=== PATIENT | female | born 1945 | race Two or more races ===

== ENCOUNTER → 2022-11-09 | Outpatient (CLI) | payer OTHER ==
[2022-11-09 13:15] LABS: Cholesterol 146 mg/dL (< 200); HDL Cholesterol 58 mg/dL (40-59); LDL Cholesterol 72 mg/dL (< 100); Triglycerides 103 mg/dL (< 150)
== END | disposition home or self-care (01) ==
LOC: LAB 09:37
PROVIDERS: ATTEND Internal Medicine
DX: E78.5 Hyperlipidemia, unspecified (principal); E03.9 Hypothyroidism, unspecified; E11.42 Type 2 diabetes mellitus with diabetic polyneuropathy
CPT/HCPCS: 36415; 80061; 83036; 84443

== ENCOUNTER → 2022-11-24 | Outpatient (CLI) | payer OTHER | END | disposition home or self-care (01) | LOC: LAB 13:04 | PROVIDERS: ATTEND Internal Medicine | DX: E03.9 Hypothyroidism, unspecified (principal) | CPT/HCPCS: 36415; 84443 ==

== ENCOUNTER → 2023-03-02 | Outpatient (CLI) | payer OTHER | END | disposition home or self-care (01) | LOC: LAB 14:49 | PROVIDERS: ATTEND Internal Medicine | DX: E11.9 Type 2 diabetes mellitus without complications (principal); E03.9 Hypothyroidism, unspecified | CPT/HCPCS: 36415; 83036; 84443 ==

== ENCOUNTER 2023-05-05 18:31 | Emergency (ER) | payer OTHER ==
[~2023-05-05] VITALS: Ht 165.1 cm; Wt 78.2 kg
[2023-05-05 19:20] VITALS: O2SAT 97
[2023-05-05 20:28] LABS: Rapid Influenza A Negative (Negative); Rapid Influenza B Negative (Negative)
[2023-05-05 20:30] LABS: COVID19 ANTIGEN SOFIA FIA NEGATIVE (NEGATIVE)
[2023-05-05 22:29] LABS: Urine Bacteria FEW /hpf (None Seen); Urine Blood Negative /uL (Negative); Urine Clarity HAZY (Clear); Urine Color Colorless (Yellow); Urine Protein, UAD TRACE (Negative); Urine Specific Gravity 1.015 (1.001-1.035); Urine Urobilinogen Normal (Negative); Urine WBC 1 /hpf (0 - 5); Urine pH 5.5 (5.0-8.0)
[2023-05-05 23:03] LABS: Basophils # (auto) 0 10 ^3/uL (0-0.2); Basophils % (auto) 0.8 % (0.0-2.0); Eosinophils # (auto) 0.2 10 ^3/uL (0-0.8); Hematocrit 32.3 % (36.0-46.0); Hemoglobin 10.5 g/dL (12.2-16.2); Lymphocytes # (auto) 1.9 10 ^3/uL (0.4-5.4); Lymphocytes % (auto) 29.7 % (10.0-50.0); Mean Corpuscular Hemoglobin 27.6 pg (28.0-32.0); Mean Corpuscular Hgb Conc. 32.6 g/dL (32.0-36.0); Mean Corpuscular Volume 84.6 fL (80.0-100.0); Monocytes # (auto) 0.5 10 ^3/uL (0-1.3); Monocytes % (auto) 7.6 % (0.0-12.0); Neutrophils # (auto) 3.8 10 ^3/uL (1.6-8.6); Neutrophils % (auto) 58.9 % (37.0-80.0); Red Blood Cells 3.82 10^6/uL (4.0-5.20); Red Cell Distribution Width 15.1 % (11.8-14.3); White Blood Cell 6.4 10^3/uL (4.4-10.8)
[2023-05-05 23:22] LABS: INR 1.07 (0.9-1.15); Prothrombin Time 11.2 sec (9.3-11.8)
[2023-05-05 23:31] LABS: Alanine Aminotransferase 12 U/L (7-40); Albumin 4.3 g/dL (3.2-4.8); Alkaline Phosphatase 50 U/L (46-116); Anion Gap 8 (5-15); Aspartate Aminotransferase 14 U/L (13-40); BUN/Creatinine Ratio 22.4 (10.0-20.0); Bilirubin, Total 0.3 mg/dL (0.2-1.0); Blood Urea Nitrogen 17 mg/dL (9-23); Calcium 9.1 mg/dL (8.7-10.4); Carbon Dioxide 27 mmol/L (20-30); Chloride 98 mmol/L (98-107); Glucose 108 mg/dL (74-106); Potassium 3.9 mmol/L (3.5-5.1); Sodium 133 mmol/L (136-145); Total Protein 6.7 g/dL (5.7-8.2)
[2023-05-05] MEDS ORDERED: IBUPROFEN 800 MG TAB PO ONE (23:45)
[2023-05-06] MEDS ORDERED: cloNIDine HCL 0.1 MG TAB PO ONE (00:15)
[2023-05-06 01:37] VITALS: BP 158/64; PULSE 56; RESP 16; TEMP 97.7
== END 2023-05-06 02:04 | disposition home or self-care (01) ==
LOC: ER 18:31
DX: B34.9 Viral infection, unspecified (principal); I10 Essential (primary) hypertension; E11.9 Type 2 diabetes mellitus without complications; Z20.822 Contact with and (suspected) exposure to COVID-19; Z98.890 Other specified postprocedural states
CPT/HCPCS: 36415; 71045; 80053; 81001; 85025; 85610; 87426; 87804; 93005

== ENCOUNTER 2023-06-18 19:38 | Inpatient (IN) | payer OTHER ==
[~2023-06-18] VITALS: Ht 165.1 cm; Wt 79.0 kg
[2023-06-18] MEDS ORDERED: cloNIDine HCL 0.1 MG TAB PO ONE (20:00)
[2023-06-18 21:09] LABS: COVID19 ANTIGEN SOFIA FIA NEGATIVE (NEGATIVE); Rapid Influenza A Negative (Negative); Rapid Influenza B Negative (Negative)
[2023-06-18 21:43] LABS: Basophils # (auto) 0 10 ^3/uL (0-0.2); Eosinophils # (auto) 0.1 10 ^3/uL (0-0.8); Hemoglobin 10.5 g/dL (12.2-16.2); White Blood Cell 7.2 10^3/uL (4.4-10.8)
[2023-06-18 21:44] LABS: Basophils % (auto) 0.4 % (0.0-2.0); Eosinophils % (auto) 1.4 % (0.0-7.0); Hematocrit 32.6 % (36.0-46.0); Lymphocytes # (auto) 1.9 10 ^3/uL (0.4-5.4); Lymphocytes % (auto) 26.2 % (10.0-50.0); Mean Corpuscular Hemoglobin 26.5 pg (28.0-32.0); Mean Corpuscular Hgb Conc. 32.1 g/dL (32.0-36.0); Mean Corpuscular Volume 82.7 fL (80.0-100.0); Monocytes # (auto) 0.4 10 ^3/uL (0-1.3); Monocytes % (auto) 5.7 % (0.0-12.0); Neutrophils # (auto) 4.8 10 ^3/uL (1.6-8.6); Neutrophils % (auto) 66.3 % (37.0-80.0); Nucleated Red Blood Cells % 0.1 %; Red Blood Cells 3.94 10^6/uL (4.0-5.20); Red Cell Distribution Width 14.5 % (11.8-14.3)
[2023-06-18 22:00] LABS: Albumin 4.4 g/dL (3.2-4.8); Alkaline Phosphatase 41 U/L (46-116); Anion Gap 6 (5-15); Aspartate Aminotransferase 11 U/L (13-40); BUN/Creatinine Ratio 16.9 (10.0-20.0); Blood Urea Nitrogen 14 mg/dL (9-23); Calcium 8.9 mg/dL (8.7-10.4); Carbon Dioxide 28 mmol/L (20-30); Chloride 94 mmol/L (98-107); Glucose 144 mg/dL (74-106); Potassium 4.2 mmol/L (3.5-5.1); Sodium 128 mmol/L (136-145)
[2023-06-18 22:01] LABS: Bilirubin, Total 0.4 mg/dL (0.2-1.0); Total Protein 6.6 g/dL (5.7-8.2)
[2023-06-18 22:30] LABS: Alanine Aminotransferase < 9 U/L (7-40)
[2023-06-18] MEDS ORDERED: SODIUM CHLORIDE 0.9% 1,000 ML IV ONE (23:30)
[2023-06-19] MEDS ORDERED: ACETAMINOPHEN 325 MG TAB PO ONE ×2 (01:30→05:30)
[2023-06-19] MEDS ORDERED: MORPHINE SULFATE INJ 2 MG/ml SYRG IV PRN (05:45)
[2023-06-19] MEDS ORDERED: ONDANSETRON HCL 4 MG/2 ML VIAL IV PRN (05:45)
[2023-06-19] MEDS ORDERED: NITROGLYCERIN 0.4 MG SL TAB SL PRN (05:45)
[2023-06-19] MEDS ORDERED: DEXTROSE (50%) 50ML SYRG IV PRN (05:45)
[2023-06-19] MEDS: ACCU-CHEK COMFORT CURVE STRIP VI SCH ×4 (07:00→22:24)
[2023-06-19 07:10] LABS: Chloride 94 mmol/L (98-107); Potassium 3.4 mmol/L (3.5-5.1); Sodium 128 mmol/L (136-145)
[2023-06-19 07:11] LABS: Anion Gap 6 (5-15); Carbon Dioxide 28 mmol/L (20-30)
[2023-06-19 07:12] LABS: Calcium 8.8 mg/dL (8.7-10.4)
[2023-06-19 07:16] LABS: Blood Urea Nitrogen 13 mg/dL (9-23); Glucose 153 mg/dL (74-106)
[2023-06-19] MEDS: InsuLIN REG 1unit/0.01ml Soln (100units/ml) SC SCH ×4 (07:41→22:41)
[2023-06-19 07:47] LABS: Urine Bacteria NONE SEEN /hpf (None Seen); Urine Blood Negative /uL (Negative); Urine Clarity Clear (Clear); Urine Color Colorless (Yellow); Urine Protein, UAD Negative (Negative); Urine Specific Gravity 1.008 (1.001-1.035); Urine Urobilinogen Normal (Negative); Urine WBC <1 /hpf (0 - 5)
[2023-06-19 07:51] LABS: Creatinine, Urine 18.55 mg/dL (30.0-125.0)
[2023-06-19] MEDS: LEVOTHYROXINE SODIUM 25 MCG TAB PO SCH (07:53)
[2023-06-19] MEDS: METOPROLOL SUCCINATE XL 50 MG TAB PO SCH (10:00)
[2023-06-19] MEDS: ACETAMINOPHEN 325 MG TAB PO PRN ×3 (10:34→23:39)
[2023-06-19] MEDS: ENOXAPARIN SOD 40 MG/0.4 ML SYRINGE SC SCH (10:35)
[2023-06-19] MEDS: LISINOPRIL 20 MG TAB PO SCH ×2 (12:09→22:19)
[2023-06-19] MEDS: cloNIDine HCL 0.1 MG TAB PO PRN (22:20)
[2023-06-20] VITALS (7 sets, daily range): BP systolic 157–193; BP diastolic 55–79; PULSE 56–68; RESP 16–20; TEMP 97.6–98.5; O2SAT 96–100
[2023-06-20] MEDS: LEVOTHYROXINE SODIUM 25 MCG TAB PO SCH (06:24)
[2023-06-20] MEDS: ACETAMINOPHEN 325 MG TAB PO PRN ×4 (06:27→22:00)
[2023-06-20] MEDS: cloNIDine HCL 0.1 MG TAB PO PRN ×2 (06:28→22:00)
[2023-06-20 06:57] LABS: Basophils # (auto) 0.1 10 ^3/uL (0-0.2); Basophils % (auto) 0.5 % (0.0-2.0); Eosinophils # (auto) 0.1 10 ^3/uL (0-0.8); Hematocrit 37.3 % (36.0-46.0); Hemoglobin 12.3 g/dL (12.2-16.2); Lymphocytes # (auto) 2.6 10 ^3/uL (0.4-5.4); Lymphocytes % (auto) 24.5 % (10.0-50.0); Mean Corpuscular Hemoglobin 27.4 pg (28.0-32.0); Mean Corpuscular Volume 83.2 fL (80.0-100.0); Monocytes # (auto) 0.8 10 ^3/uL (0-1.3); Monocytes % (auto) 7.1 % (0.0-12.0); Neutrophils # (auto) 7.1 10 ^3/uL (1.6-8.6); Neutrophils % (auto) 66.9 % (37.0-80.0); Red Blood Cells 4.48 10^6/uL (4.0-5.20); Red Cell Distribution Width 14.6 % (11.8-14.3); White Blood Cell 10.6 10^3/uL (4.4-10.8)
[2023-06-20] MEDS: InsuLIN REG 1unit/0.01ml Soln (100units/ml) SC SCH ×4 (07:00→22:05)
[2023-06-20 07:04] LABS: Alanine Aminotransferase 11 U/L (7-40); Albumin 5.1 g/dL (3.2-4.8); Alkaline Phosphatase 44 U/L (46-116); Anion Gap 8 (5-15); Aspartate Aminotransferase 16 U/L (13-40); BUN/Creatinine Ratio 13.8 (10.0-20.0); Blood Urea Nitrogen 11 mg/dL (9-23); Calcium 9.8 mg/dL (8.7-10.4); Carbon Dioxide 28 mmol/L (20-30); Chloride 88 mmol/L (98-107); Glucose 145 mg/dL (74-106); Potassium 3.6 mmol/L (3.5-5.1); Sodium 124 mmol/L (136-145)
[2023-06-20 07:05] LABS: Bilirubin, Total 0.6 mg/dL (0.2-1.0); Total Protein 7.9 g/dL (5.7-8.2)
[2023-06-20] MEDS: ACCU-CHEK COMFORT CURVE STRIP VI SCH ×5 (07:30→22:04)
[2023-06-20] MEDS: METOPROLOL SUCCINATE XL 50 MG TAB PO SCH (09:52)
[2023-06-20] MEDS: ENOXAPARIN SOD 40 MG/0.4 ML SYRINGE SC SCH (09:52)
[2023-06-20] MEDS: LISINOPRIL 20 MG TAB PO SCH ×2 (09:53→21:59)
[2023-06-20] MEDS ORDERED: LEVOTHYROXINE SODIUM 100 MCG/5 ML INJ IV ONE (16:00)
[2023-06-20] MEDS: SODIUM CHLORIDE 0.9% 1,000 ML IV SCH (16:45)
[2023-06-20] MEDS ORDERED: NIFEdipine ER 30 MG TAB PO ONE (17:45)
[2023-06-21] VITALS (7 sets, daily range): BP systolic 130–171; BP diastolic 68–94; PULSE 57–72; RESP 16–22; TEMP 97.4–98.6; O2SAT 92–100
[2023-06-21] MEDS: TEMAZEPAM 15 MG CAP PO PRN ×2 (00:27→22:31)
[2023-06-21] MEDS: SODIUM CHLORIDE 0.9% 1,000 ML IV SCH (00:45)
[2023-06-21] MEDS: ACETAMINOPHEN 325 MG TAB PO PRN ×3 (05:52→22:31)
[2023-06-21 05:54] LABS: Chloride 88 mmol/L (98-107); Potassium 3.5 mmol/L (3.5-5.1); Sodium 123 mmol/L (136-145)
[2023-06-21 05:55] LABS: Anion Gap 9 (5-15); Carbon Dioxide 26 mmol/L (20-30)
[2023-06-21 06:00] LABS: BUN/Creatinine Ratio 13.2 (10.0-20.0); Blood Urea Nitrogen 10 mg/dL (9-23); Glucose 144 mg/dL (74-106)
[2023-06-21] MEDS: InsuLIN REG 1unit/0.01ml Soln (100units/ml) SC SCH ×4 (06:04→22:36)
[2023-06-21] MEDS: cloNIDine HCL 0.1 MG TAB PO PRN (06:15)
[2023-06-21] MEDS: ACCU-CHEK COMFORT CURVE STRIP VI SCH ×4 (07:24→22:30)
[2023-06-21] MEDS: LEVOTHYROXINE SODIUM 100 MCG/5 ML INJ IV SCH (09:57)
[2023-06-21] MEDS: NIFEdipine ER 30 MG TAB PO SCH (09:58)
[2023-06-21] MEDS: METOPROLOL SUCCINATE XL 50 MG TAB PO SCH (09:58)
[2023-06-21] MEDS: LISINOPRIL 20 MG TAB PO SCH ×2 (09:58→22:32)
[2023-06-21] MEDS: ENOXAPARIN SOD 40 MG/0.4 ML SYRINGE SC SCH (09:59)
[2023-06-21] MEDS ORDERED: FUROSEMIDE 40 MG/4 ML VIAL IV ONE (12:15)
[2023-06-21 14:18] LABS: Chloride 88 mmol/L (98-107); Potassium 3.5 mmol/L (3.5-5.1); Sodium 122 mmol/L (136-145)
[2023-06-21 14:19] LABS: Anion Gap 9 (5-15); Calcium 9.3 mg/dL (8.5-10.1); Carbon Dioxide 25 mmol/L (20-30)
[2023-06-21 14:24] LABS: BUN/Creatinine Ratio 16.2 (10.0-20.0); Blood Urea Nitrogen 11 mg/dL (9-23); Glucose 146 mg/dL (74-106)
[2023-06-21] MEDS ORDERED: GABAPENTIN 100 MG CAP PO ONE (22:15)
[2023-06-22] VITALS (7 sets, daily range): BP systolic 125–154; BP diastolic 62–89; PULSE 66–72; RESP 18; TEMP 97.4–98.9; O2SAT 95–99
[2023-06-22] MEDS: ACETAMINOPHEN 325 MG TAB PO PRN ×3 (05:43→18:33)
[2023-06-22] MEDS: InsuLIN REG 1unit/0.01ml Soln (100units/ml) SC SCH ×4 (06:30→22:52)
[2023-06-22] MEDS: ACCU-CHEK COMFORT CURVE STRIP VI SCH ×4 (06:31→22:52)
[2023-06-22] MEDS: LEVOTHYROXINE SODIUM 100 MCG/5 ML INJ IV SCH (09:51)
[2023-06-22] MEDS: DOCUSATE SOD 100 MG CAP PO SCH ×2 (09:52→22:46)
[2023-06-22] MEDS: FUROSEMIDE 40 MG/4 ML VIAL IV SCH (09:52)
[2023-06-22] MEDS: NIFEdipine ER 30 MG TAB PO SCH (09:52)
[2023-06-22] MEDS: LISINOPRIL 20 MG TAB PO SCH ×2 (09:54→22:46)
[2023-06-22] MEDS: METOPROLOL SUCCINATE XL 50 MG TAB PO SCH (09:54)
[2023-06-22] MEDS: ENOXAPARIN SOD 40 MG/0.4 ML SYRINGE SC SCH (09:57)
[2023-06-22 13:07] LABS: Anion Gap 8 (5-15); Carbon Dioxide 26 mmol/L (20-30); Chloride 86 mmol/L (98-107); Potassium 3.3 mmol/L (3.5-5.1); Sodium 120 mmol/L (136-145)
[2023-06-22 13:08] LABS: Calcium 9.4 mg/dL (8.5-10.1)
[2023-06-22 13:13] LABS: BUN/Creatinine Ratio 21.7 (10.0-20.0); Blood Urea Nitrogen 15 mg/dL (9-23); Glucose 127 mg/dL (74-106)
[2023-06-22] MEDS ORDERED: POTASSIUM CHL 20 Meq TABLET PO ONE (13:45)
[2023-06-22] MEDS: UREA 15gm PO Powder PKG PO SCH ×2 (14:02→23:00)
[2023-06-22] MEDS ORDERED: GABAPENTIN 100 MG CAP PO ONE (22:15)
[2023-06-22] MEDS: TEMAZEPAM 15 MG CAP PO PRN (22:45)
[2023-06-23] VITALS (7 sets, daily range): BP systolic 112–159; BP diastolic 63–81; PULSE 63–84; RESP 16–19; TEMP 97.3–98.9; O2SAT 96–100
[2023-06-23] MEDS: ACETAMINOPHEN 325 MG TAB PO PRN ×3 (00:53→20:12)
[2023-06-23 05:51] LABS: Anion Gap 10 (5-15); Calcium 10.4 mg/dL (8.5-10.1); Carbon Dioxide 27 mmol/L (20-30); Chloride 88 mmol/L (98-107); Potassium 3.8 mmol/L (3.5-5.1)
[2023-06-23 05:58] LABS: Glucose 148 mg/dL (74-106)
[2023-06-23 06:19] LABS: Blood Urea Nitrogen 36 mg/dL (9-23); Sodium 125 mmol/L (136-145)
[2023-06-23] MEDS: ACCU-CHEK COMFORT CURVE STRIP VI SCH ×4 (06:36→21:49)
[2023-06-23] MEDS: InsuLIN REG 1unit/0.01ml Soln (100units/ml) SC SCH ×4 (06:41→21:55)
[2023-06-23] MEDS: DOCUSATE SOD 100 MG CAP PO SCH ×2 (09:54→21:48)
[2023-06-23] MEDS: NIFEdipine ER 30 MG TAB PO SCH (09:55)
[2023-06-23] MEDS: FUROSEMIDE 40 MG/4 ML VIAL IV SCH (09:56)
[2023-06-23] MEDS: LEVOTHYROXINE SODIUM 100 MCG/5 ML INJ IV SCH (09:56)
[2023-06-23] MEDS: LISINOPRIL 20 MG TAB PO SCH ×2 (09:58→21:49)
[2023-06-23] MEDS: METOPROLOL SUCCINATE XL 50 MG TAB PO SCH (09:59)
[2023-06-23] MEDS: ENOXAPARIN SOD 40 MG/0.4 ML SYRINGE SC SCH (09:59)
[2023-06-23] MEDS: UREA 15gm PO Powder PKG PO SCH ×2 (10:08→21:49)
[2023-06-23 13:40] LABS: Magnesium 1.9 mg/dL (1.6-2.6)
[2023-06-23] MEDS ORDERED: UREA15PO PO (17:19)
[2023-06-23] MEDS ORDERED: LEV50T PO (17:19)
[2023-06-23] MEDS: TEMAZEPAM 15 MG CAP PO PRN (22:01)
[2023-06-24] MEDS: ACETAMINOPHEN 325 MG TAB PO PRN ×2 (01:12→08:09)
[2023-06-24 05:00] VITALS: BP 102/55; PULSE 64; RESP 16; TEMP 97.6; O2SAT 100
[2023-06-24] MEDS: ACCU-CHEK COMFORT CURVE STRIP VI SCH ×2 (06:22→11:30)
[2023-06-24] MEDS: InsuLIN REG 1unit/0.01ml Soln (100units/ml) SC SCH ×2 (06:38→11:32)
[2023-06-24 07:51] LABS: Chloride 93 mmol/L (98-107); Potassium 3.9 mmol/L (3.5-5.1); Sodium 128 mmol/L (136-145)
[2023-06-24 07:52] LABS: Anion Gap 7 (5-15); Calcium 9.9 mg/dL (8.7-10.4); Carbon Dioxide 28 mmol/L (20-30)
[2023-06-24 07:57] LABS: BUN/Creatinine Ratio 59.2 (10.0-20.0); Glucose 151 mg/dL (74-106)
[2023-06-24 07:58] LABS: Magnesium 2.2 mg/dL (1.6-2.6)
[2023-06-24 07:59] LABS: Phosphorus 5.5 mg/dL (2.4-5.1)
[2023-06-24 08:00] VITALS: BP 110/83; PULSE 100; PULSE 76; RESP 18; TEMP 98.1; O2SAT 96
[2023-06-24 08:00] LABS: Blood Urea Nitrogen 61 mg/dL (9-23)
[2023-06-24] MEDS: FUROSEMIDE 40 MG/4 ML VIAL IV SCH (09:38)
[2023-06-24] MEDS: LEVOTHYROXINE SODIUM 100 MCG/5 ML INJ IV SCH (09:45)
[2023-06-24] MEDS: DOCUSATE SOD 100 MG CAP PO SCH (09:46)
[2023-06-24] MEDS: NIFEdipine ER 30 MG TAB PO SCH (09:46)
[2023-06-24] MEDS: METOPROLOL SUCCINATE XL 50 MG TAB PO SCH (09:46)
[2023-06-24] MEDS: LISINOPRIL 20 MG TAB PO SCH (09:47)
[2023-06-24] MEDS: UREA 15gm PO Powder PKG PO SCH (09:47)
[2023-06-24] MEDS: ENOXAPARIN SOD 40 MG/0.4 ML SYRINGE SC SCH (09:50)
[2023-06-24 11:22] VITALS: BP 110/83; PULSE 100; TEMP 36.7
== END 2023-06-24 11:35 | disposition home or self-care (01) | DRG 645 ==
LOC: ER 19:38 → TELE 06-19 05:48 → TELE-EAST 06-20 08:53
PROVIDERS: ADMIT Nurse Practitioner; ATTEND Internal Medicine
DX: E22.2 Syndrome of inappropriate secretion of antidiuretic hormone (principal); I16.0 Hypertensive urgency; I10 Essential (primary) hypertension; E86.0 Dehydration; E11.9 Type 2 diabetes mellitus without complications; K52.9 Noninfective gastroenteritis and colitis, unspecified; Z20.822 Contact with and (suspected) exposure to COVID-19; E03.9 Hypothyroidism, unspecified; Z80.0 Family history of malignant neoplasm of digestive organs; Z82.49 Family history of ischemic heart disease and other diseases of the circulatory system; Z82.62 Family history of osteoporosis; Z83.3 Family history of diabetes mellitus
CPT/HCPCS: 36415; 80048; 80053; 81001; 82140; 82306; 82570; 82962; 83036; 83735; 83880; 83930; 83935; 84100; 84295; 84300; 84439; 84443; 84484; 85025; 87426; 87804; 93005; 97163; G0378; J1815; J3490

== ENCOUNTER → 2023-07-04 | Outpatient (CLI) | payer OTHER ==
[~2023-07-04] MED LIST: LEV50T PO; UREA15PO PO
[2023-07-04 15:12] LABS: Chloride 102 mmol/L (98-107); Potassium 4.7 mmol/L (3.5-5.1); Sodium 138 mmol/L (136-145)
[2023-07-04 15:13] LABS: Anion Gap 9 (5-15); Carbon Dioxide 27 mmol/L (20-30)
[2023-07-04 15:14] LABS: Calcium 9.5 mg/dL (8.5-10.1)
[2023-07-04 15:18] LABS: Blood Urea Nitrogen 19 mg/dL (9-23); Glucose 129 mg/dL (74-106)
== END | disposition home or self-care (01) ==
LOC: LAB 14:28
PROVIDERS: ATTEND Internal Medicine
DX: E22.2 Syndrome of inappropriate secretion of antidiuretic hormone (principal)
CPT/HCPCS: 36415; 80048; 83930; 83935

== ENCOUNTER → 2023-07-06 | Outpatient (CLI) | payer OTHER | END | disposition home or self-care (01) | LOC: LAB 15:44 | PROVIDERS: ATTEND Internal Medicine | DX: N39.0 Urinary tract infection, site not specified (principal) | CPT/HCPCS: 87086 ==

== ENCOUNTER → 2023-08-31 | Outpatient (CLI) | payer OTHER | END | disposition home or self-care (01) | LOC: LAB 14:43 | PROVIDERS: ATTEND Internal Medicine | DX: E11.9 Type 2 diabetes mellitus without complications (principal) | CPT/HCPCS: 36415; 83036; 84443 ==

== ENCOUNTER → 2023-10-25 | Outpatient (CLI) | payer OTHER | END | disposition home or self-care (01) | LOC: XYW 13:15 | PROVIDERS: ATTEND Student in an Organized Health Care Education/Training Program | DX: Z01.810 Encounter for preprocedural cardiovascular examination (principal); I08.0 Rheumatic disorders of both mitral and aortic valves; I10 Essential (primary) hypertension | CPT/HCPCS: 93306 ==

== ENCOUNTER → 2024-04-27 | Outpatient (CLI) | payer OTHER ==
[~2024-04-27] MED LIST changes: -LEV50T PO; +LEVO-848 PO
[2024-04-27 12:01] LABS: Chloride 103 mmol/L (98-107); Potassium 4.6 mmol/L (3.5-5.1); Sodium 138 mmol/L (136-145)
[2024-04-27 12:02] LABS: Calcium 9.6 mg/dL (8.7-10.4)
[2024-04-27 12:04] LABS: Anion Gap 7 (5-15); Carbon Dioxide 28 mmol/L (20-31)
[2024-04-27 12:07] LABS: BUN/Creatinine Ratio 25.3 (10.0-20.0); Blood Urea Nitrogen 21 mg/dL (9-23); Glucose 124 mg/dL (74-106); Triglycerides 66 mg/dL (< 150)
[2024-04-27 12:08] LABS: LDL Cholesterol 74 mg/dL (< 100)
[2024-04-27 12:09] LABS: Cholesterol 142 mg/dL (< 200); HDL Cholesterol 60 mg/dL (40-59)
== END | disposition home or self-care (01) ==
LOC: LAB 11:11
PROVIDERS: ATTEND Internal Medicine
DX: E11.69 Type 2 diabetes mellitus with other specified complication (principal); E78.5 Hyperlipidemia, unspecified; E03.9 Hypothyroidism, unspecified
CPT/HCPCS: 36415; 80048; 80061; 83036; 84443

== ENCOUNTER → 2024-05-30 | Outpatient (CLI) | payer OTHER ==
[2024-05-30 15:39] LABS: Creatinine, Urine 41.85 mg/dL (30.0-125.0)
== END | disposition home or self-care (01) ==
LOC: LAB 15:00
PROVIDERS: ATTEND Pathology Anatomic Pathology & Clinical Pathology
DX: E11.9 Type 2 diabetes mellitus without complications (principal)
CPT/HCPCS: 36415; 82043; 82570

== ENCOUNTER → 2024-10-17 | Outpatient (CLI) | payer OTHER ==
[2024-10-17 14:15] LABS: Chloride 99 mmol/L (98-107)
[2024-10-17 14:16] LABS: Anion Gap 14 (5-15); Carbon Dioxide 23 mmol/L (20-31)
[2024-10-17 14:18] LABS: Sodium 136 mmol/L (136-145)
[2024-10-17 14:21] LABS: BUN/Creatinine Ratio 19.8 (10.0-20.0); Blood Urea Nitrogen 22 mg/dL (9-23); Glucose 145 mg/dL (74-106)
== END | disposition home or self-care (01) ==
LOC: LAB 13:35
PROVIDERS: ATTEND Internal Medicine
DX: I10 Essential (primary) hypertension (principal); E11.9 Type 2 diabetes mellitus without complications; E03.9 Hypothyroidism, unspecified
CPT/HCPCS: 36415; 80048; 83036; 84443

== ENCOUNTER → 2024-11-01 | Outpatient (CLI) | payer OTHER ==
[2024-11-01 12:53] LABS: Urine Bacteria None Seen /hpf (None Seen)
[2024-11-01 13:30] LABS: Urine Blood Negative /uL (Negative); Urine Clarity Clear (Clear); Urine Color Yellow (Yellow); Urine Protein, UAD Negative (Negative); Urine Specific Gravity 1.018 (1.001-1.035); Urine Squamous Epithelial Cell FEW /hpf (<5); Urine Urobilinogen Normal (Negative); Urine WBC < 1 /HPF (0-5); Urine pH 5.5 (5.0-9.0)
== END | disposition home or self-care (01) ==
LOC: LAB 12:49
PROVIDERS: ATTEND Internal Medicine
DX: E03.9 Hypothyroidism, unspecified (principal); E78.5 Hyperlipidemia, unspecified; N39.0 Urinary tract infection, site not specified
CPT/HCPCS: 81001; 87086

== ENCOUNTER 2025-03-13 15:04 | Outpatient (CLI) | payer OTHER ==
[2025-03-13 15:49] LABS: Chloride 101 mmol/L (98-107); Potassium 4.2 mmol/L (3.5-5.1); Sodium 139 mmol/L (136-145)
[2025-03-13 15:50] LABS: Anion Gap 10 (5-15); Calcium 9.1 mg/dL (8.7-10.4); Carbon Dioxide 28 mmol/L (20-31)
[2025-03-13 15:55] LABS: BUN/Creatinine Ratio 26.7 (10.0-20.0); Blood Urea Nitrogen 24 mg/dL (9-23); Glucose 180 mg/dL (74-106)
[2025-03-13 16:00] LABS: Microalb/Creat Ratio, Urine 113.0
== END 2025-03-13 17:00 | disposition home or self-care (01) ==
LOC: LAB 15:04
PROVIDERS: ATTEND Internal Medicine
DX: E11.9 Type 2 diabetes mellitus without complications (principal)
CPT/HCPCS: 36415; 80048; 82043; 82570

== ENCOUNTER → 2025-05-01 | Outpatient (CLI) | payer OTHER | END | disposition home or self-care (01) | LOC: LAB 05:41 | DX: N39.0 Urinary tract infection, site not specified (principal) | CPT/HCPCS: 87086 ==

== ENCOUNTER 2025-06-12 14:52 | Outpatient (CLI) | payer OTHER ==
[2025-06-12 15:27] LABS: Anion Gap 11 (5-15); Calcium 9.4 mg/dL (8.7-10.4); Carbon Dioxide 29 mmol/L (20-31); Chloride 99 mmol/L (98-107); Potassium 5.0 mmol/L (3.5-5.1); Sodium 139 mmol/L (136-145)
[2025-06-12 15:33] LABS: BUN/Creatinine Ratio 23.5 (10.0-20.0); Blood Urea Nitrogen 24 mg/dL (9-23); Glucose 118 mg/dL (74-106); Triglycerides 113 mg/dL (< 150)
[2025-06-12 15:34] LABS: Cholesterol 143 mg/dL (< 200)
[2025-06-12 15:35] LABS: HDL Cholesterol 55 mg/dL (40-59)
== END 2025-06-12 17:00 | disposition home or self-care (01) ==
LOC: LAB 14:52
PROVIDERS: ATTEND Internal Medicine
DX: I10 Essential (primary) hypertension (principal); E11.42 Type 2 diabetes mellitus with diabetic polyneuropathy; E78.5 Hyperlipidemia, unspecified; M54.32 Sciatica, left side
CPT/HCPCS: 36415; 80048; 80061; 83036; 84443